=== PATIENT | male | born 1955 | race Caucasian/White ===

== ENCOUNTER 2019-08-19 18:21 | Emergency (ER) | payer OTHER ==
[2019-08-19 19:00] LABS: Basophils % 0.7 % (0-1.3); Hematocrit 37.3 % (39.6-49.0); Lymphocytes % 13.1 % (15.3-44.8); MPV 8.2 fL (7.6-11.3); RBC Red Blood Cell Count 4.66 M/uL (4.33-5.43); Urine Appearance CLEAR; Urine Bilirubin NEGATIVE (NEG); Urine Blood NEGATIVE (NEG); Urine Color YELLOW; Urine Glucose NEGATIVE (NEG); Urine Microscopic Reflex NO UMIC; Urine Protein NEGATIVE (NEG); Urine Specific Gravity <=1.005 (1.005-1.030); Urine Urobilinogen 0.2 mg/dL (0.2-1.0); Urine pH 6.5 (5.0-7.0)
[2019-08-19 19:04] LABS: Protime INR 0.97
[2019-08-19 19:08] LABS: Barbiturates NEGATIVE (NEGATIVE); Benzodiazepines NEGATIVE (NEGATIVE); Cocaine NEGATIVE (NEGATIVE); METHAMPHETAM NEGATIVE (NEGATIVE); Methadone NEGATIVE (NEGATIVE); Opiates NEGATIVE (NEGATIVE); Phencyclidine NEGATIVE (NEGATIVE); THC Cannibis NEGATIVE (NEGATIVE)
--- NOTE | 2019-08-19 19:13 | RAD REPORT ---
EXAM DESCRIPTION: CT - Head Brain Wo Cont - 08/19/2019 6:58 pm CLINICAL HISTORY: Confusion and syncope COMPARISON: None TECHNIQUE: Computed axial tomography of the head was obtained. IV contrast was not requested. All CT scans are performed using dose optimization technique as appropriate and may include automated exposure control or mA/KV adjustment according to patient size. FINDINGS: An intracranial bleed is not seen . The ventricles are normal in caliber. No extra-axial fluid collection is noted. Mild low-density areas within periventricular, deep and subcortical white matter likely represent isc hemic changes secondary to small vessel disease. Fluid within the sinuses/ mastoids is not seen. IMPRESSION: No acute intracranial abnormality is seen. If patient's symptoms persist MRI of the bra in would be recommended.
--- NOTE | 2019-08-19 19:17 | RAD REPORT ---
EXAM DESCRIPTION: Roly Single View08/19/2019 7:07 pm CLINICAL HISTORY: Hypertension/syncope COMPARISON: none FINDINGS: The lungs appear clear of acute infiltrate. The heart is normal size IMPRESSION: No acute abnormalities displayed
[2019-08-19 19:20] LABS: Blood Morphology Comment NOT SEEN (NOT SEEN); Platelet Estimate INCR; Urine White Blood Cell Casts OK
[2019-08-19 19:23] LABS: ALT/SGPT 22 U/L (12-78); AST/SGOT 20 U/L (15-37); Albumin 3.4 g/dL (3.4-5.0); Alkaline Phosphatase 106 U/L (45-117); BUN Blood Urea Nitrogen 13 mg/dL (7-18); Bicarbonate 28 mmol/L (21-32); Bilirubin Direct 0.1 mg/dL (0-0.2); Bilirubin Total 0.3 mg/dL (0.2-1.0); Glucose Level 194 mg/dL (74-106); Magnesium 2.3 mg/dL (1.8-2.4); NT PRO-BNP 312 pg/mL (<125); Protein, Total 7.8 g/dL (6.4-8.2); Sodium Level 139 mmol/L (136-145); Troponin (Emerg Dept Use Only) < 0.02 ng/mL (0.0-0.045)
--- NOTE | 2019-08-19 19:46 | ER ---
Nurse's Notes [facility] Name: Fito Rice Age: 64 yrs Sex: Male : 1955 Arrival Date: 08/19/2019 Time: 18:27 Bed 8 Private MD: Diagnosis: Syncope and collapse;Type 1 diabetes mellitus;Essential (primary) hypertension Presentation: 08/19 18:27 Presenting complaint: EMS states: called out to [facility] for [facility]MS and disoriented em that started around 4 PM, facility nurse stated pt was having slurred speech and had unsteady gait, symptoms resolved by the time EMS showed up, BGL 269, pupils pin point on arrival, denies pain. Transition of care: patient was not received from another setting of care. Onset of symptoms was August 19, 2019. Risk Assessment: Do you want to hurt yourself or someone else? Patient reports no desire to harm self or others. Initial Sepsis Screen: Does the patient meet any 2 criteria? No. Patient's initial sepsis screen is negative. Does the patient have a suspected source of infection? No. Patient's initial sepsis screen is negative. Care prior to arrival: None. 18:27 Method Of Arrival: EMS: [facility] em 18:27 Acuity: [facility] 2 em Historical: - Allergies: 18:34 Peanut; em - PMHx: 18:34 Hyperlipidemia; Hypertension; Diabetes - IDDM; em - Immunization history:: Adult Immunizations up to date. - Coronavirus screen:: The patient has NOT traveled to [place] in the past 14 days. The patient has NOT had contact with known/suspected case of Coronavirus?. - Social history:: Smoking status: Patient denies any tobacco usage or history of. - Ebola Screening: : Patient negative for fever greater than or equal to 101.5 degrees Fahrenheit, and additional compatible Ebola Virus Disease symptoms Patient denies exposure to infectious person Patient denies travel to an Ebola-affected area in the 21 days before illness onset No symptoms or risks identified at this time. Screenin:28 Abuse screen: Denies threats or abuse. Nutritional screening: No deficits noted. em Tuberculosis screening: No symptoms or risk factors identified. Fall Risk None identified. 18:28 VAN Screening: Arm Drift: Patient shows no arm weakness. Patient is VAN negative. em 18:28 last meal intake was 1pm The patient is alert, able to follow commands. The patient em does not exhibit slurred or garbled speech The patient is not exhibiting difficulty speaking. The patient is able to swallow own secretions with no drooling or need for suction. Patient tolerated one teaspoon of water. No drooling, immediate coughing, gurgling, or clearing of the throat was noted. The patient tolerated 90mL of water. No drooling, immediate coughing, gurgling, or clearing of the throat was noted. The patient passed the bedside swallow screening. Oral medications may be given as ordered. Contact Physician for further diet orders. Provider notified of bedside swallow screening results: Daryn Landa MD. Assessment: 18:27 General: Appears in no apparent distress. comfortable, Behavior is calm, cooperative. em Pain: Denies pain. Neuro: Level of Consciousness is awake, alert, obeys commands, Oriented to person, place, time, situation, Appropriate for age Paid Search Manager are equal bilaterally Moves all extremities. Gait is steady, Speech is normal, Facial symmetry appears normal, Pupils are pinpoint. Cardiovascular: Capillary refill < 3 seconds Patient's skin is warm and dry. Respiratory: Airway is patent Respiratory effort is even, unlabored, Respiratory pattern is regular, symmetrical. GI: Patient currently denies nausea, vomiting. : Urine is clear. Derm: Skin is intact, is thin, Skin is pink, warm \T\ dry. Musculoskeletal: Capillary refill < 3 seconds, Range of motion: intact in all extremities. 20:00 Reassessment: Patient appears in no apparent distress at this time. Patient and/or rv family updated on plan of care and expected duration. Pain level reassessed. Patient is alert, oriented x 3, equal unlabored respirations, skin warm/dry/pink. 21:42 Reassessment: STILL AWAITING FOR TRANSPORTATION. rv Vital Signs: 18:34 BP 151 / 87; Pulse 74; Resp 20; Temp 97.7; Pulse Ox 97% on R/A; Weight 106.59 kg; em Height 5 ft. 9 in. (175.26 cm); Pain 0/10; 20:10 BP 148 / 60; Pulse 71; Resp 16; Pulse Ox 98% on R/A; rv 20:15 BP 152 / 64; Pulse 77; Resp 16; Pulse Ox 100% on R/A; rv 20:30 BP 160 / 67; Pulse 81; Resp 16; Pulse Ox 99% on R/A; rv 18:34 Body Mass Index 34.70 (106.59 kg, 175.26 cm) em 20:10 NO SYMPTOMS rv 20:15 SO SYMPTOMS rv 20:30 NO SYMPTOMS rv NIH Stroke Scale Scores: 18:28 NIHSS Score: 0 em ED Course: 18:27 Patient arrived in ED. em 18:27 Patient has correct armband on for positive identification. Bed in low position. Call em light in reach. Side rails up X2. correctional officers at bedside. Pulse ox on. NIBP on. 18:27 Arm band placed on. em 18:30 Daryn Landa MD is Attending Physician. kdr 18:31 Triage completed. em 18:49 EKG done, by ED staff, reviewed by Daryn Landa MD. 3 19:28 Attending Physician role handed off by Daryn Landa MD zoë 19:28 Rashad Scherer MD is Attending Physician. zoë 20:32 Morales Britton RN is Primary Nurse. rv 20:44 No provider procedures requiring assistance completed. IV discontinued. rv Administered Medications: No medications were administered Outcome: 19:46 Discharge ordered by . ozë 20:44 Discharged to Law Enforcement rv 20:44 Condition: good 20:44 Discharge instructions given to patient, Instructed on discharge instructions, follow up and referral plans. Demonstrated understanding of instructions, follow-up care. 22:27 Patient left the ED. rv NIH Stroke Scale - NIH Stroke Score Date: 08/19/2019 Time: 18:28 Total Score = 0 1a. Level of Consciousness (LOC) - 0(Alert) 1b. Level of Consciousness (LOC) (Year \T\ Age) - 0(Both) 1c. LOC Commands (Open \T\ Closes Eyes/Supervisor [employer]umping [employer]) - 0(Both) 2. Best Gaze (Lateral Gaze Paresis) - 0(Normal) 3. Visual Field Loss - 0(No visual loss) 4. Facial Palsy - 0(Normal) 5a. Left Arm: Motor (10-second hold) - 0(No drift) 5b. Right Arm: Motor (10-second hold) - 0(No drift) 6a. Left Leg: Motor (5-second hold - always test supine) - 0(No drift) 6b. Right Leg: Motor (5-second hold - always test supine) - 0(No drift) 7. Limb Ataxia (finger/nose \T\ heel/bernal - test with eyes open) - 0(Absent) 8. Sensory Loss (pinprick arms/legs/face) - 0(Normal) 9. Best Language: Aphasia (description/naming/reading) - 0(No aphasia) 10. Dysarthria (speech clarity - read or repeat words) - 0(Normal) 11. Extinction and Inattention (visual/tactile/auditory/spatial/personal) - 0(No abnormality) Initials: em Signatures: Rashad Scherer MD MD cha Rittger, Kevin, MD MD kdr Munoz, Edgar, RN RN Heena Vent[facility] Morales Britton RN RN rv Corrections: (The following items were deleted from the chart) 19:39 17:27 Abuse screen: Denies threats or abuse. em :39 17:27 Nutritional screening: No deficits noted. em 19:39 17:27 Tuberculosis screening: No symptoms or risk factors identified. em 19:39 17:27 Fall Risk None identified. em em
--- NOTE | 2019-08-19 19:47 | EDPHYS ---
Physician Documentation [facility] Name: Fito Rice Age: 64 yrs Sex: Male : 1955 Arrival Date: 08/19/2019 Time: 18:27 Bed 8 Private MD: ED Physician Rashad Scherer HPI: 08/19 18:39 This 64 yrs old Male presents to ER via EMS with complaints of Altered Mental kdr Status. 18:39 The patient presents with confusion, decreased mental status, decreased responsiveness. kdr Onset: The symptoms/episode began/occurred suddenly, just prior to arrival. Possible causes: CVA or TIA, drug use, sepsis. Associated signs and symptoms: The patient has no apparent associated signs or symptoms, Pertinent positives:. Current symptoms: In the emergency department the patient's symptoms have resolved, the patient is alert and fully oriented, has normal speech, has normal responsiveness, has no confusion. Patient's baseline: Neuro: alert and fully oriented, Motor: no deficits, Ambulation: walks without assistance, Speech: normal for age. The patient has experienced a previous episode, [address] [place]" was told that his BS was too low and they changed his medicatioins. The patient has been recently seen by a physician: Spent all day yesterday at [facility] for eye problem - chronic dry eyes and didn't return to [facility] until one AM. Did not sleep well after that. Historical: - Allergies: 18:34 Peanut; em - PMHx: 18:34 Hyperlipidemia; Hypertension; Diabetes - IDDM; em - Immunization history:: Adult Immunizations up to date. - Coronavirus screen:: The patient has NOT traveled to [place] in the past 14 days. The patient has NOT had contact with known/suspected case of Coronavirus?. - Social history:: Smoking status: Patient denies any tobacco usage or history of. - Ebola Screening: : Patient negative for fever greater than or equal to 101.5 degrees Fahrenheit, and additional compatible Ebola Virus Disease symptoms Patient denies exposure to infectious person Patient denies travel to an Ebola-affected area in the 21 days before illness onset No symptoms or risks identified at this time. ROS: 18:39 Constitutional: Negative for fever, chills, and weight loss, Eyes: Negative for injury, kdr pain, redness, and discharge, ENT: Negative for injury, pain, and discharge, Neck: Negative for injury, pain, and swelling, Cardiovascular: Negative for chest pain, palpitations, and edema, Respiratory: Negative for shortness of breath, cough, wheezing, and pleuritic chest pain, Abdomen/GI: Negative for abdominal pain, nausea, vomiting, diarrhea, and constipation, Back: Negative for injury and pain, : Negative for injury, bleeding, discharge, and swelling, MS/Extremity: Negative for injury and deformity, Skin: Negative for injury, rash, and discoloration, Neuro: Negative for headache, weakness, numbness, tingling, and seizure activity. Psych: Negative for depression, anxiety, suicide ideation, homicidal ideation, and hallucinations, Allergy/Immunology: Negative for hives, rash, and allergies, Endocrine: Negative for neck swelling, polydipsia, polyuria, polyphagia, and marked weight changes, Hematologic/Lymphatic: Negative for swollen nodes, abnormal bleeding, and unusual bruising. Exam: 18:39 Constitutional: This is a well developed, well nourished patient who is awake, alert, kdr and in no acute distress. Head/Face: Normocephalic, atraumatic. Eyes: Pupils equal round and reactive to light, extra-ocular motions intact. Lids and lashes normal. Conjunctiva and sclera are non-icteric and not injected. Cornea within normal limits. Periorbital areas with no swelling, redness, or edema. Neck: Trachea midline, no thyromegaly or masses palpated, and no cervical lymphadenopathy. Supple, full range of motion without nuchal rigidity, or vertebral point tenderness. No Meningismus. Chest/axilla: Normal chest wall appearance and motion. Nontender with no deformity. No lesions are appreciated. Cardiovascular: Regular rate and rhythm with a normal S1 and S2. No gallops, murmurs, or rubs. Normal PMI, no JVD. No pulse deficits. Respiratory: Lungs have equal breath sounds bilaterally, clear to auscultation and percussion. No rales, rhonchi or wheezes noted. No increased work of breathing, no retractions or nasal flaring. Abdomen/GI: Soft, non-tender, with normal bowel sounds. No distension or tympany. No guarding or rebound. No evidence of tenderness throughout. Back: No spinal tenderness. No costovertebral tenderness. Full range of motion. Skin: Warm, dry with normal turgor. Normal color with no rashes, no lesions, and no evidence of cellulitis. MS/ Extremity: Pulses equal, no cyanosis. Neurovascular intact. Full, normal range of motion. Neuro: Awake and alert, GCS 15, oriented to person, place, time, and situation. Cranial nerves II-XII grossly intact. Motor strength 5/5 in all extremities. Sensory grossly intact. Cerebellar exam normal. Normal gait. Psych: Awake, alert, with orientation to person, place and time. Behavior, mood, and affect are within normal limits. Vital Signs: 18:34 BP 151 / 87; Pulse 74; Resp 20; Temp 97.7; Pulse Ox 97% on R/A; Weight 106.59 kg; em Height 5 ft. 9 in. (175.26 cm); Pain 0/10; 20:10 BP 148 / 60; Pulse 71; Resp 16; Pulse Ox 98% on R/A; rv 20:15 BP 152 / 64; Pulse 77; Resp 16; Pulse Ox 100% on R/A; rv 20:30 BP 160 / 67; Pulse 81; Resp 16; Pulse Ox 99% on R/A; rv 18:34 Body Mass Index 34.70 (106.59 kg, 175.26 cm) em 20:10 NO SYMPTOMS rv 20:15 SO SYMPTOMS rv 20:30 NO SYMPTOMS rv NIH Stroke Scale Scores: 18:28 NIHSS Score: 0 em MDM: 18:39 Data reviewed: vital signs, nurses notes. kdr 19:28 Patient medically screened. zoë 08/19 18:44 Order name: Basic Metabolic Panel [facility] 08/19 18:44 Order name: CBC with Diff [facility] 08/19 18:44 Order name: LFT's [facility] 08/19 18:44 Order name: Magnesium [facility] 08/19 18:44 Order name: NT PRO-BNP [facility] 08/19 18:44 Order name: PT-INR [facility] 08/19 18:44 Order name: Troponin (emerg Dept Use Only) [facility] 08/19 18:44 Order name: ETOH Level [facility] 08/19 18:44 Order name: UDS [facility] 08/19 18:44 Order name: Urinalysis [facility] 08/19 18:45 Order name: Glucose, Ancillary Testing; Complete Time: 19:28 EDMS 08/19 19:03 Order name: Urinalysis; Complete Time: 19:28 [facility] 08/19 19:11 Order name: CBC with Automated Diff; Complete Time: 19:28 [facility] 08/19 19:11 Order name: Protime (+INR); Complete Time: 19:28 [facility] 08/19 18:44 Order name: XRAY Chest (1 view) [facility] 08/19 18:44 Order name: EKG; Complete Time: 18:47 [facility] 08/19 18:44 Order name: CT Head Brain wo Cont kdr 08/19 19:11 Order name: Urine Drug Screen; Complete Time: 19:28 [facility] 08/19 19:22 Order name: CBC Smear Scan; Complete Time: 19:28 [facility] 08/19 19:22 Order name: Alcohol Serum/Plasma; Complete Time: 19:28 [facility] 08/19 19:25 Order name: Basic Metabolic Panel; Complete Time: 19:28 [facility] 08/19 19:25 Order name: Liver (Hepatic) Function; Complete Time: 19:28 [facility] 08/19 19:25 Order name: Troponin (Emerg Dept Use Only); Complete Time: 19:28 [facility] 08/19 19:25 Order name: NT PRO-BNP; Complete Time: 19:28 [facility] 08/19 19:25 Order name: Magnesium; Complete Time: 19:28 [facility] 08/19 19:38 Order name: CT [facility] 08/19 19:38 Order name: RAD [facility] 08/19 19:46 Order name: US Carotid Artery Bilateral [facility] 08/19 19:50 Order name: EKG; Complete Time: 19:50 [facility] 08/19 20:44 Order name: US [facility] 08/19 18:44 Order name: Cardiac monitoring; Complete Time: 20:38 [facility] 08/19 18:44 Order name: EKG - Nurse/Tech; Complete Time: 18:52 [facility] 08/19 18:44 Order name: IV Saline Lock; Complete Time: 20:37 [facility] 08/19 18:44 Order name: Labs collected and sent; Complete Time: 20:37 [facility] 08/19 18:44 Order name: O2 Per Protocol; Complete Time: 20:37 [facility] 08/19 18:44 Order name: O2 Sat Monitoring; Complete Time: 20:38 [facility] 08/19 19:45 Order name: Orthostatics; Complete Time: 20:37 [facility] 08/19 19:50 Order name: EKG - Nurse/Tech; Complete Time: 20:37 [facility] Administered Medications: No medications were administered Disposition: 08/19/19 19:46 Discharged to Home. Impression: Syncope and collapse, Type 1 diabetes mellitus, Essential (primary) hypertension. - Condition is Stable. - Discharge Instructions: Type 1 Diabetes Mellitus, Diagnosis, Adult, Hypertension, Syncope, Hypertension, [id number], Syncope, Pzan-on-Feis, Weakness, Orgl-wh-Sowu, Aspirin and Your Heart, Managing Your Hypertension. - Medication Reconciliation Form, Thank You Letter, Antibiotic Education, Prescription Opioid Use form. - Follow up: Private Physician; When: 1 - 2 days; Reason: Recheck today's complaints, Continuance of care, Re-evaluation by your physician. - Problem is new. - Symptoms have improved. NIH Stroke Scale - NIH Stroke Score Date: 08/19/2019 Time: 18:28 Total Score = 0 1a. Level of Consciousness (LOC) - 0(Alert) 1b. Level of Consciousness (LOC) (Year \\T\\ Age) - 0(Both) 1c. LOC Commands (Open \\T\\ Closes Eyes/Assistant Housekeeping Manager) - 0(Both) 2. Best Gaze (Lateral Gaze Paresis) - 0(Normal) 3. Visual Field Loss - 0(No visual loss) 4. Facial Palsy - 0(Normal) 5a. Left Arm: Motor (10-second hold) - 0(No drift) 5b. Right Arm: Motor (10-second hold) - 0(No drift) 6a. Left Leg: Motor (5-second hold - always test supine) - 0(No drift) 6b. Right Leg: Motor (5-second hold - always test supine) - 0(No drift) 7. Limb Ataxia (finger/nose \\T\\ heel/bernal - test with eyes open) - 0(Absent) 8. Sensory Loss (pinprick arms/legs/face) - 0(Normal) 9. Best Language: Aphasia (description/naming/reading) - 0(No aphasia) 10. Dysarthria (speech clarity - read or repeat words) - 0(Normal) 11. Extinction and Inattention (visual/tactile/auditory/spatial/personal) - 0(No abnormality) Initials: em Signatures: Dispatcher [employer] EDMS Gilmer, Rashad, Daryn North MD, cha, MD MD kdr Munoz, Edgar, RN RN em Morales Britton, RN RN rv Corrections: (The following items were deleted from the chart) 22:27 19:46 08/19/2019 19:46 Discharged to Home. Impression: Syncope and collapse; rv Type 1 diabetes mellitus; Essential (primary) hypertension. Condition is Stable. Forms are Medication Reconciliation Form, Thank You Letter, Antibiotic Education, Prescription Opioid Use. Follow up: Private Physician; When: 1 - 2 days; Reason: Recheck today's complaints, Continuance of care, Re-evaluation by your physician. Problem is new. Symptoms have improved. zoë
--- NOTE | 2019-08-19 20:33 | RAD REPORT ---
EXAM DESCRIPTION: USCarotid Artery Bilateral08/19/2019 8:18 pm CLINICAL HISTORY: syncope COMPARISON: None FINDINGS: The velocity of the right internal carotid artery equals 75 cm/sec. The right ICA/CCA rati o 1 The velocity of the left internal carotid artery equals 60 cm/sec. The left ICA/CCA ratio 1.2 Mild plaque is present within the carotid arteries. The vertebral arteries demonstrate antegrade flow IMPRESSION: Mild plaque within the carotid arteries without evidence of a hemodynamically significan t stenosis NASCET criteria used. Mild 0-49% stenosis Moderate 50-69% stenosis Severe 70-99% stenosis
--- NOTE | 2019-08-20 16:28 | EKG ---
Test Date: 2019-08-19 Test Time: 18:49:42 Blind Eyeletter: JHONATAN MEASUREMENT RESULTS: Intervals: Rate: 70 OR: 198 QRSD: 90 QT: 412 QTc: 444 [place]: P: 57 OR: 198 QRS: -70 T: 67 INTERPRETIVE STATEMENTS: Normal sinus rhythm Left axis deviation Low voltage QRS Cannot rule out Anteroseptal infarct, age undetermined Abnormal ECG No previous ECG available for comparison Electronically Signed On 08-20-19 16:27:24 ASSEMBLER P[employer]AT by Quique Marte
--- NOTE | 2019-08-21 07:47 | EKG ---
Test Date: 2019-08-19 Test Time: 20:27:52 Manager Community Outreach: RV MEASUREMENT RESULTS: Intervals: Rate: 59 ND: 188 QRSD: 90 QT: 430 QTc: 425 [place]: P: 67 ND: 188 QRS: -75 T: 81 INTERPRETIVE STATEMENTS: Sinus bradycardia with marked sinus arrhythmia Left anterior fascicular block Cannot rule out Anteroseptal infarct, age undetermined Abnormal ECG Compared to ECG 08/19/2019 18:49:42 Left anterior fascicular block now present Sinus rhythm no longer present Left-axis deviation no longer present Myocardial infarct finding still present Electronically Signed On 08-21-19 07:45:26 MARKET DEVELOPMENT EXECUTIVE by Quique Marte
== END 2019-08-19 22:27 | disposition home or self-care (01) ==
LOC: ER 18:21
DX: R55 Syncope and collapse (principal); E10.8 Type 1 diabetes mellitus with unspecified complications; I10 Essential (primary) hypertension; Z91.010 Allergy to peanuts
CPT/HCPCS: 36415; 70450; 71045; 80048; 80076; 80307; 80320; 81003; 82947; 83735; 83880; 84484; 85025; 85610; 93005; 93880; 99284